=== PATIENT | female | born 1995 | race Two or more races ===

== ENCOUNTER 2021-01-03 03:17 | Emergency (ER) | payer SELFPAY ==
[~2021-01-03] VITALS: Ht 165.1 cm; Wt 71.0 kg
[2021-01-03] MEDS ORDERED: NALO4SPR BOTHNSTRLS (05:49)
[2021-01-03 06:45] VITALS: BP 150/66
== END 2021-01-03 07:09 | disposition home or self-care (01) ==
LOC: ER 03:17
DX: F10.129 Alcohol abuse with intoxication, unspecified (principal); T51.0X1A Toxic effect of ethanol, accidental (unintentional), initial encounter; Y92.89 Other specified places as the place of occurrence of the external cause; J45.909 Unspecified asthma, uncomplicated; R56.9 Unspecified convulsions
CPT/HCPCS: 93005; 99283